=== PATIENT | female | born 1995 | race Caucasian/White ===

== ENCOUNTER 2021-12-09 08:17 | Emergency (ER) | payer BC ==
[~2021-12-09] VITALS: Ht 160 cm; Wt 66.7 kg
[2021-12-09 08:25] VITALS: BP 125/86
--- NOTE | 2021-12-09 08:28 | NUR ---
AMBULATED TO BED 11
--- NOTE | 2021-12-09 08:31 | NUR ---
26 Y/O FEMALE BIB SELF C/O LEFT BREAST PAIN AND TENDERNESS 03/13, STATES THEY HAVE A "CLOGGED DUCT." HAVE BEEN FOR 3 MONTHS, BREAST NOTED WITH TENDERNESS IN THE MIDDLE UPPER PORTION, SLIGHTLY WARM AND TENDER TO TOUCH, NO REDNESS OR CELLULITIS NOTED. PT STATES THAT THEY TRIED TO PUMP TO REMOVE THE EXCESS MILK, DENIED ANY MEDICATION OR OTHER INTERVENTIONS FOR THE PAIN. PT DENIES SIMILAR PROBLEMS IN 1ST NKA PMH: GALLBLADDER REMOVAL
--- NOTE | 2021-12-09 08:36 | NUR ---
DR MELARA AT BEDSIDE FOR EXAMINATION WITH FEMALE SLIP INJECTOR AND APPLICATOR RUCHI DOHERTY
[2021-12-09] MEDS ORDERED: KETOROLAC 15 MG/ML VIAL IM ONE (08:50)
--- NOTE | 2021-12-09 09:15 | NUR ---
DR MELARA AND RUCHI RN AT BEDSIDE FOR WARM COMPRESS AND MASSAGE OF THE LEFT BREAST I ATTEMPT TO DISLODGE CLOGGED DUCT
--- NOTE | 2021-12-09 09:31 | NUR ---
CONTINUED WITH WARM COMPRESS AND MASSAGE, NOTED EXPRESED MILK IN DUCT, PAIN DECREASED FROM 8/10 NOW 4/,
[2021-12-09] MEDS ORDERED: BACO TP (09:42)
[2021-12-09 09:54] VITALS: BP 125/86
--- NOTE | 2021-12-09 09:55 | NUR ---
Patient discharged with v/s stable. Written and verbal after care instructions ABOUT MILK BLEB given and explained. Patient alert, oriented and verbalized understanding of instructions. Ambulatory with steady gait. All questions addressed prior to discharge. ID band removed. Patient advised to follow up with PMD. Rx of BACITRACIN given. Patient educated on indication of medication including possible reaction and side effects. Opportunity to ask questions provided and answered.
== END 2021-12-09 09:55 | disposition home or self-care (01) ==
LOC: MED 08:17
DX: N60.49 Mammary duct ectasia of unspecified breast (principal); N64.4 Mastodynia; Z79.899 Other long term (current) drug therapy
CPT/HCPCS: 81025; 96372; 99284; J1885